=== PATIENT | male | born 1955 | race Hispanic/Latino ===

== ENCOUNTER 2021-03-30 21:19 | Inpatient (IN) | payer OTHER ==
[~2021-03-30] VITALS: Ht 165.1 cm; Wt 66.5 kg
[~2021-03-30 21:19] MED LIST: CHOL500045 PO; FURO40TA5 PO; INS7030 SQ; METF-444 PO; VIT1CAPS5 PO
[2021-03-30 23:23] LABS: BASOPHILS % (AUTO) 0.1 % (0.0-5.0); LYMPHOCYTES % (AUTO) 4.9 % (21.0-51.0); MEAN CORPUSCULAR HGB CONC 31.5 g/dL (32.0-36.0); MEAN CORPUSCULAR VOLUME 76.2 fL (79-99); MONOCYTES % (AUTO) 8.3 % (3.0-13.0); NEUTROPHILS % (AUTO) 86.2 % (40.0-77.0); NUCLEATED RED BLOOD CELLS 0.4 % (0.0-0.19); PLATELET COUNT (AUTO) 371 K/uL (130-400); RED BLOOD CELL COUNT(AUTO) 4.33 MIL/uL (4.50-6.20); RED CELL DISTRIBUTION WIDTH 15.8 % (11.0-15.5); WHITE BLOOD COUNT (AUTO) 11.3 K/uL (4.8-10.8)
[2021-03-30 23:34] LABS: INR 1.46 (0.85-1.15); PROTHROMBIN TIME 15.4 SEC (9.6-11.6)
[2021-03-30 23:37] LABS: BILIRUBIN,TOTAL 0.7 mg/dL (0.2-1.0); MAGNESIUM 2.3 mg/dL (1.80-2.40)
[2021-03-30 23:40] LABS: B-TYPE NATRIURETIC PEPTIDE 3120 pg/mL (0-100)
[2021-03-30 23:45] LABS: POTASSIUM 5.5 mmol/L (3.5-5.1)
[2021-03-30 23:48] LABS: CREATININE 8.5 mg/dL (0.5-1.5)
[2021-03-30 23:49] LABS: ABG BASE EXCESS -14.5 mmol/L (-2.0-3.0); ABG HCO3 11.8 mmol/L (21.0-28.0); ABG OXYGEN SATURATION 95.6 % (95.0-99.0); ABG PCO2 30 mmHg (35-48)
[2021-03-31] VITALS (18 sets, daily range): BP systolic 98–121; BP diastolic 55–67
[2021-03-31] MEDS ORDERED: CEFTRIAXONE 1G VIAL IVP ONE (02:00)
[2021-03-31] MEDS ORDERED: ONDANSETRON 4MG INJ IV PRN (03:00)
[2021-03-31] MEDS ORDERED: HYDRALAZINE 20MG/ML VIAL IV PRN (03:00)
[2021-03-31] MEDS ORDERED: ZOSYN 3.375GM+NS 50ML 50 ML IV SCH (03:00)
[2021-03-31] MEDS ORDERED: ALPRAZOLAM 0.5 MG TABLET PO PRN (03:30)
[2021-03-31] MEDS: 0.9%NACL 1000ML 1,000 ML IV SCH (03:57)
[2021-03-31] MEDS ORDERED: BUSP10TA3 PO (04:09)
[2021-03-31] MEDS ORDERED: FURO20TA4 PO (04:09)
[2021-03-31] MEDS ORDERED: SERT-438 PO (04:09)
[2021-03-31] MEDS: INSULIN HUMULIN R 100 UNIT/ML 3ML SQ SCH ×4 (06:33→20:22)
[2021-03-31 07:02] LABS: BASOPHILS % (AUTO) 0.2 % (0.0-5.0); EOSINOPHILS % (AUTO) 0.1 % (0.0-8.0); HEMATOCRIT 32.3 % (42-54); LYMPHOCYTES % (AUTO) 6.6 % (21.0-51.0); MEAN CORPUSCULAR HEMOGLOBIN 24.2 pg (27.0-33.0); MEAN CORPUSCULAR HGB CONC 31.3 g/dL (32.0-36.0); MEAN CORPUSCULAR VOLUME 77.5 fL (79-99); MONOCYTES % (AUTO) 9.1 % (3.0-13.0); NEUTROPHILS % (AUTO) 83.6 % (40.0-77.0); NUCLEATED RED BLOOD CELLS 0.4 % (0.0-0.19); PLATELET COUNT (AUTO) 323 K/uL (130-400); RED BLOOD CELL COUNT(AUTO) 4.17 MIL/uL (4.50-6.20); RED CELL DISTRIBUTION WIDTH 16.1 % (11.0-15.5); WHITE BLOOD COUNT (AUTO) 10.5 K/uL (4.8-10.8)
[2021-03-31 07:37] LABS: POTASSIUM 5.7 mmol/L (3.5-5.1)
[2021-03-31 08:27] LABS: CREATININE 8.3 mg/dL (0.5-1.5)
[2021-03-31] MEDS: HEPARIN 5,000 UNIT VIAL SQ SCH ×3 (09:00→19:06)
[2021-03-31] MEDS: FAMOTIDINE 20MG TAB PO SCH (09:00)
[2021-03-31] MEDS: ZYVOX 600 MG TAB PO SCH (12:00)
[2021-03-31] MEDS: CEFEPIME HCL 1 GM VIAL IVP SCH (12:00)
[2021-03-31] MEDS ORDERED: HYDROMORPHONE 1 MG INJ ONE (12:58)
[2021-03-31] MEDS ORDERED: FENTANYL CITRATE PF 50 MCG/1 ML 2ML VIAL IVP ONE (13:55)
[2021-03-31] MEDS ORDERED: MIDAZOLAM HCL 1 MG/ML 2ML VIAL IVP ONE (13:55)
[2021-03-31] MEDS ORDERED: SODIUM BICARB 50MEQ 50ML VIAL IV SCH (14:20)
[2021-03-31 14:54] LABS: ALBUMIN 2.7 g/dL (3.5-5.0); BILIRUBIN,TOTAL 0.5 mg/dL (0.2-1.0); TOTAL PROTEIN, SERUM 7.2 g/dL (6.0-8.3)
[2021-03-31 15:09] LABS: CREATININE 8.5 mg/dL (0.5-1.5); POTASSIUM 6.1 mmol/L (3.5-5.1)
[2021-03-31] MEDS ORDERED: HEPARIN 5,000 UNIT VIAL IJ PRN (16:00)
[2021-03-31 16:34] LABS: HEMATOCRIT 29.7 % (42-54)
[2021-03-31 17:01] LABS: ALBUMIN 2.4 g/dL (3.5-5.0)
[2021-03-31 17:09] LABS: CREATININE 8.3 mg/dL (0.5-1.5)
[2021-03-31 17:19] LABS: % IRON SATURATION 9.4 % (30-44)
[2021-03-31] MEDS ORDERED: KAYEXALATE 15GM/60ML PO SCH (18:45)
[2021-04-01] VITALS (21 sets, daily range): BP systolic 96–135; BP diastolic 56–77
[2021-04-01 00:31] LABS: CREATININE 6.1 mg/dL (0.5-1.5); POTASSIUM 3.6 mmol/L (3.5-5.1)
[2021-04-01] MEDS: ZYVOX 600 MG TAB PO SCH ×3 (02:05→23:10)
[2021-04-01] MEDS: 0.9%NACL 1000ML 1,000 ML IV SCH (02:06)
[2021-04-01 04:57] LABS: BASOPHILS % (AUTO) 0.2 % (0.0-5.0); EOSINOPHILS % (AUTO) 0.3 % (0.0-8.0); HEMATOCRIT 29.7 % (42-54); LYMPHOCYTES % (AUTO) 4.8 % (21.0-51.0); MEAN CORPUSCULAR HEMOGLOBIN 24.1 pg (27.0-33.0); MEAN CORPUSCULAR HGB CONC 31.3 g/dL (32.0-36.0); MEAN CORPUSCULAR VOLUME 76.9 fL (79-99); MONOCYTES % (AUTO) 10.5 % (3.0-13.0); NEUTROPHILS % (AUTO) 83.7 % (40.0-77.0); NUCLEATED RED BLOOD CELLS 0.2 % (0.0-0.19); PLATELET COUNT (AUTO) 295 K/uL (130-400); RED BLOOD CELL COUNT(AUTO) 3.86 MIL/uL (4.50-6.20); RED CELL DISTRIBUTION WIDTH 16.2 % (11.0-15.5); WHITE BLOOD COUNT (AUTO) 11.9 K/uL (4.8-10.8)
[2021-04-01 05:01] LABS: HEMOGLOBIN A1C 8.6 % (4.0-6.0)
[2021-04-01 05:06] LABS: CREATININE 6.3 mg/dL (0.5-1.5); PHOSPHORUS 8.8 mg/dL (2.5-4.9); POTASSIUM 3.7 mmol/L (3.5-5.1)
[2021-04-01] MEDS: INSULIN HUMULIN R 100 UNIT/ML 3ML SQ SCH ×4 (05:43→19:38)
[2021-04-01] MEDS: FAMOTIDINE 20MG TAB PO SCH (08:09)
[2021-04-01] MEDS: HEPARIN 5,000 UNIT VIAL SQ SCH ×3 (08:18→20:52)
[2021-04-01] MEDS: CEFEPIME HCL 1 GM VIAL IVP SCH (12:19)
[2021-04-01] MEDS: HEPARIN 5,000 UNIT VIAL IV SCH (19:30)
[2021-04-02] VITALS (25 sets, daily range): BP systolic 96–112; BP diastolic 57–72
[2021-04-02] MEDS: INSULIN HUMULIN R 100 UNIT/ML 3ML SQ SCH ×4 (06:43→20:47)
[2021-04-02 07:46] LABS: BASOPHILS % (AUTO) 0.4 % (0.0-5.0); EOSINOPHILS % (AUTO) 0.5 % (0.0-8.0); HEMATOCRIT 29.9 % (42-54); LYMPHOCYTES % (AUTO) 9.5 % (21.0-51.0); MEAN CORPUSCULAR HEMOGLOBIN 24.2 pg (27.0-33.0); MEAN CORPUSCULAR HGB CONC 30.8 g/dL (32.0-36.0); MEAN CORPUSCULAR VOLUME 78.7 fL (79-99); NEUTROPHILS % (AUTO) 74.1 % (40.0-77.0); NUCLEATED RED BLOOD CELLS 0.2 % (0.0-0.19); PLATELET COUNT (AUTO) 252 K/uL (130-400); RED CELL DISTRIBUTION WIDTH 16.8 % (11.0-15.5); WHITE BLOOD COUNT (AUTO) 10.6 K/uL (4.8-10.8)
[2021-04-02 07:57] LABS: CREATININE 4.7 mg/dL (0.5-1.5); CRP QUANTITATIVE 83.4 mg/L (0.00-9.0); POTASSIUM 3.4 mmol/L (3.5-5.1)
[2021-04-02] MEDS ORDERED: COMPOUND IV MISC 1 EACH IVSOLN MISC PRN (08:00)
[2021-04-02 08:47] LABS: ERYTHROCYTE SEDIMENTATION RATE 40 MM/HR (0-20)
[2021-04-02] MEDS: ZINC SULFATE 220 CAPSULE PO SCH (09:33)
[2021-04-02] MEDS: FAMOTIDINE 20MG TAB PO SCH (09:33)
[2021-04-02] MEDS: THIAMINE HCL 100 MG TABLET PO SCH (09:33)
[2021-04-02] MEDS: DRONABINOL 2.5 MG CAP PO SCH ×2 (09:33→20:46)
[2021-04-02] MEDS: Vitamin B Complex/Vit C/Folic Acid PO SCH (09:33)
[2021-04-02] MEDS: HEPARIN 5,000 UNIT VIAL SQ SCH ×3 (09:34→20:46)
[2021-04-02] MEDS: IRON SUCROSE COMPLEX 200 MG in 0.9%NACL 50ML 50 ML IV SCH (09:36)
[2021-04-02] MEDS: CEFEPIME HCL 1 GM VIAL IVP SCH (12:18)
[2021-04-02] MEDS: ZYVOX 600 MG TAB PO SCH (12:18)
[2021-04-02 13:14] LABS: HEPATITIS Bs ANTIGEN SCREEN P Negative (Negative)
[2021-04-02] MEDS: HEPARIN 5,000 UNIT VIAL IV SCH (15:37)
[2021-04-02] MEDS ORDERED: HYDROCODONE/ACETAMINOPHEN 5/325 MG TAB PO ONE (20:30)
[2021-04-02] MEDS ORDERED: POLYETHYLENE GLYCOL 3350 17 GM POWD.PACK PO SCH (23:00)
[2021-04-02] MEDS ORDERED: DOCUSATE SODIUM 100 MG CAP PO SCH (23:00)
[2021-04-02] MEDS ORDERED: SENNOSIDES 8.6 MG TABLET PO SCH (23:00)
[2021-04-02] MEDS ORDERED: POLYETHYLENE GLYCOL 3350 17 GM POWD.PACK ONE (23:10)
[2021-04-02] MEDS ORDERED: DOCUSATE SODIUM 100 MG CAP PO ONE (23:11)
[2021-04-02] MEDS ORDERED: SENNOSIDES 8.6 MG TABLET ONE (23:11)
[2021-04-03] VITALS: BP 96/57
[2021-04-03] MEDS: ZYVOX 600 MG TAB PO SCH ×2 (00:49→11:35)
[2021-04-03 04:00] VITALS: BP 99/60
[2021-04-03] MEDS: LACTULOSE 20 GM/30 ML UDCUP PO SCH ×9 (06:00→20:54)
[2021-04-03] MEDS: INSULIN HUMULIN R 100 UNIT/ML 3ML SQ SCH ×4 (06:39→20:16)
[2021-04-03 07:48] VITALS: BP 100/62
[2021-04-03] MEDS: IRON SUCROSE COMPLEX 200 MG in 0.9%NACL 50ML 50 ML IV SCH (09:39)
[2021-04-03] MEDS: Vitamin B Complex/Vit C/Folic Acid PO SCH (09:39)
[2021-04-03] MEDS: FAMOTIDINE 20MG TAB PO SCH (09:39)
[2021-04-03] MEDS: DOCUSATE SODIUM 100 MG CAP PO SCH ×2 (09:39→20:49)
[2021-04-03] MEDS: ZINC SULFATE 220 CAPSULE PO SCH (09:39)
[2021-04-03] MEDS: THIAMINE HCL 100 MG TABLET PO SCH (09:39)
[2021-04-03] MEDS: DRONABINOL 2.5 MG CAP PO SCH ×2 (09:39→20:49)
[2021-04-03] MEDS: SENNOSIDES 8.6 MG TABLET PO SCH (09:39)
[2021-04-03] MEDS: POLYETHYLENE GLYCOL 3350 17 GM POWD.PACK PO SCH (09:39)
[2021-04-03] MEDS: HEPARIN 5,000 UNIT VIAL SQ SCH ×3 (09:40→20:50)
[2021-04-03 11:00] VITALS: BP 109/57
[2021-04-03] MEDS: CEFEPIME HCL 1 GM VIAL IVP SCH (11:35)
[2021-04-03 15:44] VITALS: BP 103/62
[2021-04-03 19:00] VITALS: BP 106/61
[2021-04-04] VITALS (25 sets, daily range): BP systolic 96–151; BP diastolic 51–72
[2021-04-04] MEDS: INSULIN HUMULIN R 100 UNIT/ML 3ML SQ SCH ×4 (06:20→21:00)
[2021-04-04] MEDS: LACTULOSE 20 GM/30 ML UDCUP PO SCH ×5 (08:00→21:10)
[2021-04-04] MEDS ORDERED: HEPARIN 1,000 UNIT VIAL ONE (08:45)
[2021-04-04] MEDS ORDERED: LIDOCAINE HCL 1% MDV 50ML VIAL ONE (08:45)
[2021-04-04] MEDS: ZYVOX 600 MG TAB PO SCH ×2 (09:48→21:05)
[2021-04-04] MEDS: DOCUSATE SODIUM 100 MG CAP PO SCH ×2 (09:48→21:04)
[2021-04-04] MEDS: THIAMINE HCL 100 MG TABLET PO SCH (09:48)
[2021-04-04] MEDS: DRONABINOL 2.5 MG CAP PO SCH ×2 (09:49→21:04)
[2021-04-04] MEDS: Vitamin B Complex/Vit C/Folic Acid PO SCH (09:49)
[2021-04-04] MEDS: SENNOSIDES 8.6 MG TABLET PO SCH (09:49)
[2021-04-04] MEDS: FAMOTIDINE 20MG TAB PO SCH (09:49)
[2021-04-04] MEDS: ZINC SULFATE 220 CAPSULE PO SCH (09:49)
[2021-04-04] MEDS: POLYETHYLENE GLYCOL 3350 17 GM POWD.PACK PO SCH (09:49)
[2021-04-04] MEDS: HEPARIN 5,000 UNIT VIAL SQ SCH ×3 (09:50→21:10)
[2021-04-04 12:21] LABS: BASOPHILS % (AUTO) 0.3 % (0.0-5.0); HEMATOCRIT 33.7 % (42-54); LYMPHOCYTES % (AUTO) 8.8 % (21.0-51.0); MEAN CORPUSCULAR HEMOGLOBIN 24.2 pg (27.0-33.0); MEAN CORPUSCULAR HGB CONC 30.3 g/dL (32.0-36.0); MEAN CORPUSCULAR VOLUME 79.9 fL (79-99); MONOCYTES % (AUTO) 13.8 % (3.0-13.0); NEUTROPHILS % (AUTO) 74.5 % (40.0-77.0); NUCLEATED RED BLOOD CELLS 1.1 % (0.0-0.19); PLATELET COUNT (AUTO) 147 K/uL (130-400); RED BLOOD CELL COUNT(AUTO) 4.22 MIL/uL (4.50-6.20); RED CELL DISTRIBUTION WIDTH 17.5 % (11.0-15.5); WHITE BLOOD COUNT (AUTO) 13.3 K/uL (4.8-10.8)
[2021-04-04 12:34] LABS: ALBUMIN 2.4 g/dL (3.5-5.0); BILIRUBIN,TOTAL 0.8 mg/dL (0.2-1.0); CREATININE 2.2 mg/dL (0.5-1.5); MAGNESIUM 1.8 mg/dL (1.80-2.40); PHOSPHORUS 3.4 mg/dL (2.5-4.9); TOTAL PROTEIN, SERUM 7.1 g/dL (6.0-8.3)
[2021-04-04 13:00] LABS: POTASSIUM 2.7 mmol/L (3.5-5.1)
[2021-04-04] MEDS: CEFTAZIDIME PENTAHYDRATE 1 GM/VIAL IVP SCH (14:32)
[2021-04-05] VITALS (13 sets, daily range): BP systolic 93–109; BP diastolic 54–65
[2021-04-05] MEDS: LACTULOSE 20 GM/30 ML UDCUP PO SCH ×5 (03:14→19:50)
[2021-04-05 04:14] LABS: BASOPHILS % (AUTO) 0.3 % (0.0-5.0); EOSINOPHILS % (AUTO) 1.1 % (0.0-8.0); HEMATOCRIT 34.5 % (42-54); LYMPHOCYTES % (AUTO) 6.8 % (21.0-51.0); MEAN CORPUSCULAR HEMOGLOBIN 23.9 pg (27.0-33.0); MEAN CORPUSCULAR VOLUME 82.3 fL (79-99); MONOCYTES % (AUTO) 14.3 % (3.0-13.0); NUCLEATED RED BLOOD CELLS 0.6 % (0.0-0.19); PLATELET COUNT (AUTO) 178 K/uL (130-400); RED BLOOD CELL COUNT(AUTO) 4.19 MIL/uL (4.50-6.20); RED CELL DISTRIBUTION WIDTH 17.7 % (11.0-15.5); WHITE BLOOD COUNT (AUTO) 11.4 K/uL (4.8-10.8)
[2021-04-05 04:29] LABS: INR 1.32 (0.85-1.15)
[2021-04-05 04:30] LABS: PARTIAL THROMBOPLASTIN TIME 41.7 SEC (26.3-35.5)
[2021-04-05 04:37] LABS: CREATININE 3.7 mg/dL (0.5-1.5); POTASSIUM 3.1 mmol/L (3.5-5.1)
[2021-04-05] MEDS: INSULIN HUMULIN R 100 UNIT/ML 3ML SQ SCH ×4 (05:56→19:51)
[2021-04-05] MEDS ORDERED: HEPARIN 1,000 UNIT VIAL ONE (07:07)
[2021-04-05] MEDS ORDERED: LIDOCAINE HCL 1% MDV 50ML VIAL ONE (07:07)
[2021-04-05] MEDS: HEPARIN 5,000 UNIT VIAL SQ SCH ×3 (08:02→19:51)
[2021-04-05] MEDS ORDERED: DRONABINOL 2.5 MG CAP PO SCH (09:00)
[2021-04-05] MEDS: POLYETHYLENE GLYCOL 3350 17 GM POWD.PACK PO SCH (09:00)
[2021-04-05] MEDS: THIAMINE HCL 100 MG TABLET PO SCH (09:30)
[2021-04-05] MEDS: ZYVOX 600 MG TAB PO SCH ×2 (09:30→19:58)
[2021-04-05] MEDS: Vitamin B Complex/Vit C/Folic Acid PO SCH (09:30)
[2021-04-05] MEDS: SENNOSIDES 8.6 MG TABLET PO SCH (09:30)
[2021-04-05] MEDS: DOCUSATE SODIUM 100 MG CAP PO SCH ×2 (09:30→19:51)
[2021-04-05] MEDS: ZINC SULFATE 220 CAPSULE PO SCH (09:30)
[2021-04-05] MEDS: FAMOTIDINE 20MG TAB PO SCH (09:30)
[2021-04-05] MEDS: CEFTAZIDIME PENTAHYDRATE 1 GM/VIAL IVP SCH (15:11)
[2021-04-05] MEDS ORDERED: IRON SUCROSE COMPLEX 300 MG in 0.9%NACL 50ML 50 ML IV SCH (16:00)
[2021-04-05] MEDS: DRONABINOL 2.5 MG CAP PO SCH (19:58)
[2021-04-06] MEDS: LACTULOSE 20 GM/30 ML UDCUP PO SCH
== END 2021-04-06 01:44 | DRG 673 ==
LOC: EDH 21:19 → EDHIP 03-31 02:36 → 4AH 03-31 03:45 → 4BH 04-01 04:15
PROVIDERS: ADMIT Internal Medicine; ATTEND Internal Medicine
PROC: 02HV33Z Insertion of Infusion Device into Superior Vena Cava, Percutaneous Approach (ICD-10-PCS; principal; 2021-03-31)
PROC: B548ZZA Ultrasonography of Superior Vena Cava, Guidance (ICD-10-PCS; 2021-03-31)
PROC: 5A1D70Z Performance of Urinary Filtration, Intermittent, Less than 6 Hours Per Day (ICD-10-PCS; 2021-03-31)
PROC: 0JH63XZ Insertion of Tunneled Vascular Access Device into Chest Subcutaneous Tissue and Fascia, Percutaneous Approach (ICD-10-PCS; 2021-03-31)
PROC: 05HM33Z Insertion of Infusion Device into Right Internal Jugular Vein, Percutaneous Approach (ICD-10-PCS; 2021-03-31)
PROC: B543ZZA Ultrasonography of Right Jugular Veins, Guidance (ICD-10-PCS; 2021-03-31)
PROC: 5A1D70Z Performance of Urinary Filtration, Intermittent, Less than 6 Hours Per Day (ICD-10-PCS; 2021-04-01)
PROC: 5A1D70Z Performance of Urinary Filtration, Intermittent, Less than 6 Hours Per Day (ICD-10-PCS; 2021-04-02)
PROC: 5A1D70Z Performance of Urinary Filtration, Intermittent, Less than 6 Hours Per Day (ICD-10-PCS; 2021-04-04)
DX: N17.9 Acute kidney failure, unspecified (principal); E43 Unspecified severe protein-calorie malnutrition; I12.0 Hypertensive chronic kidney disease with stage 5 chronic kidney disease or end stage renal disease; L03.115 Cellulitis of right lower limb; E87.1 Hypo-osmolality and hyponatremia; L97.919 Non-pressure chronic ulcer of unspecified part of right lower leg with unspecified severity; L97.929 Non-pressure chronic ulcer of unspecified part of left lower leg with unspecified severity; L03.116 Cellulitis of left lower limb; J90 Pleural effusion, not elsewhere classified; Z16.24 Resistance to multiple antibiotics; N18.6 End stage renal disease; Z66 Do not resuscitate; E87.5 Hyperkalemia; D64.9 Anemia, unspecified; E11.22 Type 2 diabetes mellitus with diabetic chronic kidney disease; E11.51 Type 2 diabetes mellitus with diabetic peripheral angiopathy without gangrene; E78.00 Pure hypercholesterolemia, unspecified; E78.5 Hyperlipidemia, unspecified; E87.6 Hypokalemia; F41.9 Anxiety disorder, unspecified; I25.10 Atherosclerotic heart disease of native coronary artery without angina pectoris; I25.5 Ischemic cardiomyopathy; Z68.24 Body mass index [BMI] 24.0-24.9, adult; Z74.01 Bed confinement status; Z99.2 Dependence on renal dialysis; Z87.891 Personal history of nicotine dependence; Z91.19 Patient's noncompliance with other medical treatment and regimen; Z88.8 Allergy status to other drugs, medicaments and biological substances; Z83.3 Family history of diabetes mellitus; Z82.49 Family history of ischemic heart disease and other diseases of the circulatory system; Z20.822 Contact with and (suspected) exposure to COVID-19
CPT/HCPCS: 36415; 36558; 36600; 71045; 77001; 80048; 80053; 80061; 82010; 82040; 82565; 82728; 82803; 82948; 83036; 83540; 83550; 83605; 83690; 83735; 83880; 84100; 84484; 84520; 85014; 85018; 85025; 85045; 85610; 85651; 85730; 86140; 86701; 86704; 86706; 87040; 87070; 87076; 87077; 87186; 87340; 87390; 87635; 90935; 93005; 93306; 93356; 93925; 93970; 97039; C1750; C9803; G0378; J0692; J0696; J0713; J1170; J1644; J1756; J2250; J2543; J3010; J3490; J7030; Q0167

== ENCOUNTER 2021-04-28 13:09 | Emergency (ER) | payer OTHER ==
[~2021-04-28] VITALS: Ht 157.5 cm; Wt 67.1 kg
[2021-04-28 13:12] VITALS: BP 102/55
== END 2021-04-28 16:36 | disposition left against medical advice (07) ==
LOC: EDH 13:09
DX: Z53.21 Procedure and treatment not carried out due to patient leaving prior to being seen by health care provider (principal)

== ENCOUNTER 2021-05-23 15:20 | Emergency (ER) | payer OTHER ==
[~2021-05-23] VITALS: Ht 165.1 cm; Wt 65.8 kg
[2021-05-23 16:31] LABS: BASOPHILS % (AUTO) 0.4 % (0.0-5.0); EOSINOPHILS % (AUTO) 0.1 % (0.0-8.0); HEMATOCRIT 37.2 % (42-54); LYMPHOCYTES % (AUTO) 8.9 % (21.0-51.0); MEAN CORPUSCULAR HEMOGLOBIN 25.4 pg (27.0-33.0); MEAN CORPUSCULAR HGB CONC 29.3 g/dL (32.0-36.0); MEAN CORPUSCULAR VOLUME 86.7 fL (79-99); MONOCYTES % (AUTO) 5.9 % (3.0-13.0); NEUTROPHILS % (AUTO) 84.2 % (40.0-77.0); PLATELET COUNT (AUTO) 244 K/uL (130-400); RED BLOOD CELL COUNT(AUTO) 4.29 MIL/uL (4.50-6.20); RED CELL DISTRIBUTION WIDTH 17.1 % (11.0-15.5); WHITE BLOOD COUNT (AUTO) 13.6 K/uL (4.8-10.8)
[2021-05-23 16:42] LABS: CREATININE 2.9 mg/dL (0.5-1.5); MAGNESIUM 1.8 mg/dL (1.80-2.40)
[2021-05-23 16:44] LABS: POTASSIUM 2.4 mmol/L (3.5-5.1)
[2021-05-23 17:53] VITALS: BP 114/66
[2021-05-23] MEDS ORDERED: KCL 20 MEQ ERTAB PO ONE (18:00)
== END 2021-05-23 17:50 | disposition home or self-care (01) ==
LOC: EDH 15:20
DX: E87.6 Hypokalemia (principal); I12.0 Hypertensive chronic kidney disease with stage 5 chronic kidney disease or end stage renal disease; E11.22 Type 2 diabetes mellitus with diabetic chronic kidney disease; N18.6 End stage renal disease; E78.00 Pure hypercholesterolemia, unspecified; Z90.49 Acquired absence of other specified parts of digestive tract; Z88.8 Allergy status to other drugs, medicaments and biological substances
CPT/HCPCS: 36415; 80048; 83735; 85025; 93005